=== PATIENT | female | born 1945 | race Caucasian/White ===

== ENCOUNTER → 2017-02-25 | Outpatient (CLI) | payer OTHER ==
[~2017-02-25] MED LIST: AFRIN,GENASAL D15 ML BOTH NARES; ALENDRONATE SOD70 MG PO; AMARYL4 MG PO; AMLODIPINE BESY10 MG PO; AMLODIPINE BESYL5 MG PO; AMLODIPINE-BEN1 EAC4 PO; CALCIO DEL MAR500 MG PO; CLONIDINE HCL0.1 MG PO; CYCLOBENZAPRINE10 MG PO; DOCUSATE SODIU100 MG PO; ERGOCALCIF50000 UNIT PO; FLEXERIL10 MG PO; FOSAMAX70 MG PO; GLIMEPIRIDE2 MG PO; GLIMEPIRIDE4 MG PO; GLUCOSAMINE CH1 EAC7 PO; HUMALOG100 UNIT/2 SC; LABETALOL HCL200 MG PO; LANTUS 3 M100 UNITS1 SC; LANTUS100 UNIT/1 SQ; LEVAQUIN750 MG PO; LISINOPRIL20 MG PO; METFORMIN HCL1000 MG PO; NORCO 5/3251 TABLET PO; NORVASC2.5 MG PO; NORVASC5 MG PO; NOVOLIN,HU100 UNITS/ SC; NOVOLOG MI100 UNIT/4 SC; OXYCODONE-ACET1 EACH PO; PAROXETINE HCL20 MG PO; PAROXETINE HCL30 MG PO; PAXIL20 MG PO; PAXIL30 MG PO; PERCOCET 10/1 TABLET PO; PERCOCET 5/31 TABLET PO; PRAVACHOL40 MG PO; PRAVACHOL80 MG PO; PRAVASTATIN SOD40 MG PO; PREDNISONE20 MG PO; TOUJEO SOL300 UNIT/1 SC; VITAMIN D250000 UNIT PO
== END | disposition home or self-care (01) ==
LOC: CDC 13:58
DX: R94.31 Abnormal electrocardiogram [ECG] [EKG] (principal)
CPT/HCPCS: 93000

== ENCOUNTER 2017-03-15 06:49 | Day surgery (SDC) | payer OTHER ==
[~2017-03-15] VITALS: Ht 167.6 cm; Wt 63.5 kg
[~2017-03-15 06:49] MED LIST changes: +AMLODIPINE-BEN1 EACH PO; +NOVOLOG MI100 UNIT/3 SC
[2017-03-15 07:39] LABS: HEMATOCRIT 33.6 % (36.0-46.0); MCH 29.1 PG (29.0-34.0); MCV 88.2 FL (83-99); MEAN PLAT.VOLUME 12.2 uM^3 (9.5-12.4); PLATELET COUNT 274 K/uL (156-360); RBC DIS.WIDTH-CV 13.8 % (11.8-14.6); RBC DIS.WIDTH-SD 44.5 % (39-53); RED BLOOD COUNT 3.81 M/uL (3.80-5.20); WHITE BLOOD COUNT 7.6 K/uL (4.1-10.2)
[2017-03-15 07:45] VITALS: BP 180/86
[2017-03-15 08:12] LABS: ANION GAP 8 MEQ/L (2-14); CHLORIDE 109 MEQ/L (99-109); GFR ESTIMATE (CALCULATED) 16 mL/min/; GLUCOSE 109 mg/dL (70-99); POTASSIUM 3.4 MEQ/L (3.7-5.4); SAMPLE HEMOLYSIS CHECK 0; SAMPLE ICTERIC CHECK 0; SAMPLE LIPEMIA CHECK 0; SODIUM 140 MEQ/L (136-147); UREA NITROGEN (BUN) 38 mg/dL (9-23)
[2017-03-15 11:42] LABS: POINT-OF-CARE METER ID UU13113675
[2017-03-15 12:17] VITALS: BP 166/73
[2017-03-15 13:26] VITALS: BP 140/70
[2017-03-15 13:59] LABS: POINT-OF-CARE METER ID UU13113694
== END 2017-03-15 13:35 | disposition home or self-care (01) ==
LOC: SDC 06:49
PROVIDERS: Surgery
DX: I12.0 Hypertensive chronic kidney disease with stage 5 chronic kidney disease or end stage renal disease (principal); E11.22 Type 2 diabetes mellitus with diabetic chronic kidney disease; N18.6 End stage renal disease; Z99.2 Dependence on renal dialysis; Z79.4 Long term (current) use of insulin; Z88.6 Allergy status to analgesic agent
CPT/HCPCS: 80048; 82948; 85027; J0131; J0690; J1644; J2250; J2405; J2720; J3010

== ENCOUNTER 2017-04-12 07:26 | Inpatient (IN) | payer OTHER ==
[~2017-04-12] VITALS: Ht 167.6 cm; Wt 64.8 kg
[2017-04-12 08:04] LABS: EOSINOPHIL (%) 3.4 % (0-5); EOSINOPHIL COUNT 0.3 K/uL (0-0.3); HEMATOCRIT 34.2 % (36.0-46.0); IMMATURE GRANULOCYTE (%) 0.3 % (0.0-0.7); INSTRUMENT ABS NEUTROPHIL CT 5.1 K/uL; LYMPHOCYTE COUNT 1.2 K/uL (1.0-2.8); MCH 28.3 PG (29.0-34.0); MCHC 31.6 G/DL (30.0-36.0); MCV 89.8 FL (83-99); MEAN PLAT.VOLUME 12.2 uM^3 (9.5-12.4); MONOCYTE (%) 9.9 % (3-12); MONOCYTE COUNT 0.7 K/uL (0-0.8); NEUTROPHIL (%) 69.3 % (45-76); NEUTROPHIL COUNT 5.1 K/uL (1.8-6.4); PLATELET COUNT 251 K/uL (156-360); RBC DIS.WIDTH-CV 14.2 % (11.8-14.6); RBC DIS.WIDTH-SD 46.4 % (39-53); RED BLOOD COUNT 3.81 M/uL (3.80-5.20); WHITE BLOOD COUNT 7.3 K/uL (4.1-10.2)
[2017-04-12 08:09] LABS: INTER. NORMALIZED RATIO 1.1; PROTHROMBIN TIME 12.1 SEC (10.2-12.9)
[2017-04-12 08:12] LABS: PTT 31.4 SEC (25-37)
[2017-04-12 08:28] LABS: ANION GAP 11 MEQ/L (2-14); CHLORIDE 111 MEQ/L (99-109); POTASSIUM 4.3 MEQ/L (3.7-5.4); SAMPLE HEMOLYSIS CHECK 0; SAMPLE ICTERIC CHECK 0; SAMPLE LIPEMIA CHECK 0; SODIUM 141 MEQ/L (136-147)
[2017-04-12 08:33] LABS: GFR ESTIMATE (CALCULATED) 18 mL/min/; GLUCOSE 331 mg/dL (70-99); UREA NITROGEN (BUN) 36 mg/dL (9-23)
[2017-04-12 08:37] LABS: TROP-I INTERPRETATION NEGATIVE; TROPONIN-I 0.04 ng/mL (0.0-0.30)
[2017-04-12] MEDS ORDERED: NOVOLIN,HU100 UNITS/ SC ×2 (09:36)
[2017-04-12 12:34] VITALS: BP 147/95
[2017-04-12] MEDS ORDERED: CALCITRIOL0.25 MCG PO (12:52)
[2017-04-12 13:19] LABS: POINT-OF-CARE METER ID UU14174216
[2017-04-12] MEDS ORDERED: DITROPAN5 MG PO ×2 (14:28→14:29)
[2017-04-12 14:33] VITALS: BP 197/94
[2017-04-12 15:01] LABS: TROP-I INTERPRETATION NEGATIVE; TROPONIN-I 0.04 ng/mL (0.0-0.30)
[2017-04-12 15:25] VITALS: BP 152/68
[2017-04-12 16:24] LABS: POINT-OF-CARE METER ID UU13113781
[2017-04-12 17:03] VITALS: BP 183/88
[2017-04-12] MEDS ORDERED: TELMISARTAN-AM1 EAC1 PO (17:31)
[2017-04-12 18:14] VITALS: BP 129/60
[2017-04-12 19:47] VITALS: BP 165/71
[2017-04-12 20:47] LABS: TROP-I INTERPRETATION NEGATIVE
[2017-04-12 22:49] LABS: POINT-OF-CARE METER ID UU14174216
[2017-04-13 00:15] VITALS: BP 154/76
[2017-04-13 04:01] VITALS: BP 138/67
[2017-04-13 06:34] LABS: ANION GAP 9 MEQ/L (2-14); CHLORIDE 108 MEQ/L (99-109); SAMPLE HEMOLYSIS CHECK 0; SAMPLE ICTERIC CHECK 0; SAMPLE LIPEMIA CHECK 0; SODIUM 142 MEQ/L (136-147); UREA NITROGEN (BUN) 40 mg/dL (9-23)
[2017-04-13 06:36] LABS: GFR ESTIMATE (CALCULATED) 12 mL/min/; GLUCOSE 43 mg/dL (70-99); POTASSIUM 3.4 MEQ/L (3.7-5.4)
[2017-04-13 07:30] VITALS: BP 129/60
[2017-04-13 12:00] VITALS: BP 145/69
[2017-04-13 16:01] VITALS: BP 163/72
[2017-04-13 20:33] VITALS: BP 136/62
[2017-04-13 21:54] LABS: POINT-OF-CARE METER ID UU13113781
[2017-04-14] VITALS (7 sets, daily range): BP systolic 125–155; BP diastolic 64–81
[2017-04-14 02:50] LABS: POINT-OF-CARE METER ID UU14174216
[2017-04-14 05:09] LABS: BASOPHIL COUNT 0.1 K/uL (0-0.1); EOSINOPHIL (%) 1.4 % (0-5); EOSINOPHIL COUNT 0.1 K/uL (0-0.3); HEMATOCRIT 32.8 % (36.0-46.0); IMMATURE GRANULOCYTE (%) 0.5 % (0.0-0.7); IMMATURE GRANULOCYTE COUNT 0.1 K/uL; LYMPHOCYTE COUNT 1.1 K/uL (1.0-2.8); MCH 28.7 PG (29.0-34.0); MCV 89.6 FL (83-99); MEAN PLAT.VOLUME 12.2 uM^3 (9.5-12.4); MONOCYTE (%) 8.9 % (3-12); MONOCYTE COUNT 0.8 K/uL (0-0.8); NEUTROPHIL (%) 76.7 % (45-76); PLATELET COUNT 250 K/uL (156-360); RBC DIS.WIDTH-CV 14.3 % (11.8-14.6); RBC DIS.WIDTH-SD 47.2 % (39-53); RED BLOOD COUNT 3.66 M/uL (3.80-5.20); WHITE BLOOD COUNT 9.1 K/uL (4.1-10.2)
[2017-04-14 05:48] LABS: ANION GAP 13 MEQ/L (2-14); CHLORIDE 105 MEQ/L (99-109); GFR ESTIMATE (CALCULATED) 12 mL/min/; GLUCOSE 55 mg/dL (70-99); SAMPLE HEMOLYSIS CHECK 0; SAMPLE ICTERIC CHECK 0; SAMPLE LIPEMIA CHECK 0; SODIUM 139 MEQ/L (136-147); UREA NITROGEN (BUN) 45 mg/dL (9-23)
[2017-04-14 06:00] LABS: POTASSIUM 4.8 MEQ/L (3.7-5.4)
[2017-04-14 06:39] LABS: POINT-OF-CARE METER ID UU14174216
[2017-04-14 08:10] LABS: POINT-OF-CARE METER ID UU14174216; POINT-OF-CARE USER ID NUTSLF44
[2017-04-14 12:55] LABS: POINT-OF-CARE USER ID NUTSLF44
[2017-04-14 16:27] LABS: POINT-OF-CARE METER ID UU13113781; POINT-OF-CARE USER ID NUTSLF44
[2017-04-14 21:37] LABS: POINT-OF-CARE METER ID UU13113781
[2017-04-15 03:37] VITALS: BP 159/74
[2017-04-15 06:48] LABS: BASOPHIL COUNT 0.1 K/uL (0-0.1); EOSINOPHIL (%) 3.2 % (0-5); EOSINOPHIL COUNT 0.3 K/uL (0-0.3); HEMATOCRIT 31.8 % (36.0-46.0); IMMATURE GRANULOCYTE (%) 0.3 % (0.0-0.7); INSTRUMENT ABS NEUTROPHIL CT 4.9 K/uL; LYMPHOCYTE COUNT 1.7 K/uL (1.0-2.8); MCH 29.4 PG (29.0-34.0); MCHC 32.4 G/DL (30.0-36.0); MCV 90.9 FL (83-99); MEAN PLAT.VOLUME 12.1 uM^3 (9.5-12.4); MONOCYTE (%) 10.8 % (3-12); MONOCYTE COUNT 0.8 K/uL (0-0.8); NEUTROPHIL (%) 62.9 % (45-76); NEUTROPHIL COUNT 4.9 K/uL (1.8-6.4); PLATELET COUNT 227 K/uL (156-360); RBC DIS.WIDTH-CV 14.5 % (11.8-14.6); RBC DIS.WIDTH-SD 47.8 % (39-53); WHITE BLOOD COUNT 7.7 K/uL (4.1-10.2)
[2017-04-15 07:12] LABS: ANION GAP 10 MEQ/L (2-14); CHLORIDE 107 MEQ/L (99-109); GFR ESTIMATE (CALCULATED) 10 mL/min/; GLUCOSE 63 mg/dL (70-99); POTASSIUM 4.8 MEQ/L (3.7-5.4); SAMPLE HEMOLYSIS CHECK 0; SAMPLE ICTERIC CHECK 0; SAMPLE LIPEMIA CHECK 0; SODIUM 140 MEQ/L (136-147); UREA NITROGEN (BUN) 53 mg/dL (9-23)
[2017-04-15 07:38] LABS: POINT-OF-CARE METER ID UU14188625
[2017-04-15 08:22] LABS: POINT-OF-CARE METER ID UU13113717
[2017-04-15 08:25] VITALS: BP 155/71
[2017-04-15 11:33] VITALS: BP 140/74
[2017-04-15 16:17] VITALS: BP 139/63
[2017-04-15 19:52] VITALS: BP 132/63
[2017-04-15 21:19] LABS: POINT-OF-CARE METER ID UU14188625
[2017-04-16 00:02] VITALS: BP 136/63
[2017-04-16 03:36] VITALS: BP 116/55
[2017-04-16 07:05] LABS: ANION GAP 11 MEQ/L (2-14); CHLORIDE 106 MEQ/L (99-109); GFR ESTIMATE (CALCULATED) 11 mL/min/; GLUCOSE 53 mg/dL (70-99); POTASSIUM 4.7 MEQ/L (3.7-5.4); SAMPLE HEMOLYSIS CHECK 0; SAMPLE ICTERIC CHECK 0; SAMPLE LIPEMIA CHECK 0; SODIUM 139 MEQ/L (136-147); UREA NITROGEN (BUN) 55 mg/dL (9-23)
[2017-04-16 08:00] VITALS: BP 115/59; BP 115/61
[2017-04-16 10:14] LABS: POINT-OF-CARE METER ID UU14188625
[2017-04-16 11:52] VITALS: BP 131/73
[2017-04-16 12:09] LABS: POINT-OF-CARE METER ID UU13113717
[2017-04-16] MEDS ORDERED: NIFEDIPINE ER30 MG PO (12:27)
[2017-04-16] MEDS ORDERED: LABETALOL HCL200 MG PO (12:27)
[2017-04-16] MEDS ORDERED: FUROSEMIDE20 MG PO (12:28)
[2017-04-16] MEDS ORDERED: RENVELA800 MG PO (12:28)
== END 2017-04-16 14:02 | disposition home health service (06) | DRG 291 ==
LOC: EME 07:26 → 4EAST 09:28 → EDOF 09:28 → ENRESERV 09:30 → EDOF 11:05 → ENRESERV 11:24 → 4EAST 12:19 → 5SOUTH 04-14 16:23 → ENRESERV 04-14 16:32 → 5SOUTH 04-14 22:08
PROVIDERS: Emergency Medicine; Internal Medicine; Internal Medicine Nephrology; Nurse Practitioner Adult Health
DX: I13.2 Hypertensive heart and chronic kidney disease with heart failure and with stage 5 chronic kidney disease, or end stage renal disease (principal); I50.31 Acute diastolic (congestive) heart failure; N17.9 Acute kidney failure, unspecified; N18.5 Chronic kidney disease, stage 5; E11.22 Type 2 diabetes mellitus with diabetic chronic kidney disease; I27.2 Other secondary pulmonary hypertension; I31.3 Pericardial effusion (noninflammatory); I35.0 Nonrheumatic aortic (valve) stenosis; I16.1 Hypertensive emergency; E78.00 Pure hypercholesterolemia, unspecified; E87.6 Hypokalemia; M81.0 Age-related osteoporosis without current pathological fracture; F32.9 Major depressive disorder, single episode, unspecified; E55.9 Vitamin D deficiency, unspecified; F41.9 Anxiety disorder, unspecified; R26.81 Unsteadiness on feet; Z79.4 Long term (current) use of insulin; Z87.81 Personal history of (healed) traumatic fracture; Z83.3 Family history of diabetes mellitus
CPT/HCPCS: 71010; 80048; 82948; 83735; 83880; 84100; 84484; 85025; 85610; 85730; 93005; 93306; 94799; 99281; 99285; J0360; J1644; J1815; J1940; J2270

== ENCOUNTER 2017-05-11 11:55 | Emergency (ER) | payer OTHER ==
[~2017-05-11] VITALS: Ht 167.6 cm; Wt 61.6 kg
[~2017-05-11 11:55] MED LIST changes: +CALCITRIOL0.25 MCG PO; +DITROPAN5 MG PO; +FUROSEMIDE20 MG PO; +NIFEDIPINE ER30 MG PO; +RENVELA800 MG PO; +TELMISARTAN-AM1 EAC1 PO
[2017-05-11 12:50] LABS: HEMATOCRIT 32.7 % (36.0-46.0); MCH 28.6 PG (29.0-34.0); MCHC 32.4 G/DL (30.0-36.0); MCV 88.4 FL (83-99); PLATELET COUNT 282 K/uL (156-360); RBC DIS.WIDTH-CV 12.9 % (11.8-14.6); RBC DIS.WIDTH-SD 41.5 % (39-53); WHITE BLOOD COUNT 10.3 K/uL (4.1-10.2)
[2017-05-11 13:13] LABS: CHLORIDE 107 mEq/L (99-109); TROP-I INTERPRETATION NEGATIVE; TROPONIN-I 0.07 ng/mL (0.0-0.30)
[2017-05-11 13:14] LABS: POTASSIUM 4.1 mEq/L (3.7-5.4); SODIUM 138 mEq/L (136-147)
[2017-05-11 13:15] LABS: GLUCOSE 212 mg/dL (70-99)
[2017-05-11 13:17] LABS: ANION GAP 14 MEQ/L (2-14)
[2017-05-11 13:19] LABS: GFR ESTIMATE (CALCULATED) 12 mL/min/
[2017-05-11 13:20] LABS: UREA NITROGEN (BUN) 47 mg/dL (9-23)
[2017-05-11] MEDS ORDERED: HYDROCODON-ACE1 EAC7 PO (14:55)
[2017-05-11 15:07] VITALS: BP 152/60
== END 2017-05-11 15:21 | disposition home or self-care (01) ==
LOC: EME 11:55
PROVIDERS: Emergency Medicine
PROC: 2W3LX1Z Immobilization of Right Lower Extremity using Splint (ICD-10-PCS; principal; 2017-05-11)
DX: R55 Syncope and collapse (principal); S82.441A Displaced spiral fracture of shaft of right fibula, initial encounter for closed fracture; W19.XXXA Unspecified fall, initial encounter; E11.9 Type 2 diabetes mellitus without complications; Z79.4 Long term (current) use of insulin; E78.5 Hyperlipidemia, unspecified; F32.9 Major depressive disorder, single episode, unspecified; F41.9 Anxiety disorder, unspecified
CPT/HCPCS: 70450; 71010; 73564; 73610; 73630; 80048; 84484; 85027; 93005; 99281; 99285; J2270

== ENCOUNTER 2017-05-12 13:13 | Day surgery (SDC) | payer OTHER ==
[~2017-05-12 13:13] MED LIST changes: +HYDROCODON-ACE1 EAC7 PO
[2017-05-12 14:32] LABS: POINT-OF-CARE METER ID UU13113696; POINT-OF-CARE USER ID HMLCJM07
== END 2017-05-12 16:07 | disposition home or self-care (01) ==
LOC: CATH 13:13
PROVIDERS: Surgery
PROC: 057Y3ZZ Dilation of Upper Vein, Percutaneous Approach (ICD-10-PCS; principal; 2017-05-12)
DX: T82.858A Stenosis of other vascular prosthetic devices, implants and grafts, initial encounter (principal); I12.0 Hypertensive chronic kidney disease with stage 5 chronic kidney disease or end stage renal disease; E11.22 Type 2 diabetes mellitus with diabetic chronic kidney disease; N18.6 End stage renal disease; Z99.2 Dependence on renal dialysis; E78.00 Pure hypercholesterolemia, unspecified; Z79.82 Long term (current) use of aspirin; Z79.4 Long term (current) use of insulin
CPT/HCPCS: 82948; C1725; C1769; C1894; J1644; J2250; J3010

== ENCOUNTER → 2017-05-13 | Outpatient (CLI) | payer OTHER ==
[~2017-05-13] MED LIST changes: +NORMODYNE,TRAN300 MG PO
== END | disposition home or self-care (01) ==
LOC: CDC 15:19
DX: I45.4 Nonspecific intraventricular block (principal); R94.31 Abnormal electrocardiogram [ECG] [EKG]; S82.851A Displaced trimalleolar fracture of right lower leg, initial encounter for closed fracture; E55.9 Vitamin D deficiency, unspecified
CPT/HCPCS: 93000

== ENCOUNTER 2017-05-16 07:32 | Inpatient (IN) | payer OTHER ==
[~2017-05-16] VITALS: Ht 167.6 cm; Wt 62.2 kg
[2017-05-16] VITALS (9 sets, daily range): BP systolic 77–123; BP diastolic 45–73
[~2017-05-16 07:32] MED LIST changes: -NORMODYNE,TRAN300 MG PO
[2017-05-16 08:03] LABS: BASOPHIL COUNT 0.1 K/uL (0-0.1); EOSINOPHIL (%) 1.3 % (0-5); EOSINOPHIL COUNT 0.2 K/uL (0-0.3); HEMATOCRIT 26.7 % (36.0-46.0); IMMATURE GRANULOCYTE (%) 0.7 % (0.0-0.7); IMMATURE GRANULOCYTE COUNT 0.1 K/uL; INSTRUMENT ABS NEUTROPHIL CT 8.9 K/uL; LYMPHOCYTE COUNT 1.5 K/uL (1.0-2.8); MCH 28.7 PG (29.0-34.0); MEAN PLAT.VOLUME 12.3 uM^3 (9.5-12.4); MONOCYTE (%) 11.3 % (3-12); MONOCYTE COUNT 1.4 K/uL (0-0.8); NEUTROPHIL (%) 73.8 % (45-76); NEUTROPHIL COUNT 8.9 K/uL (1.8-6.4); NRBC (%) 0.2 /100 WBC (0-0); PLATELET COUNT 259 K/uL (156-360); RBC DIS.WIDTH-CV 13.7 % (11.8-14.6); RBC DIS.WIDTH-SD 42.7 % (39-53); RED BLOOD COUNT 3.07 M/uL (3.80-5.20)
[2017-05-16 08:09] LABS: INTER. NORMALIZED RATIO 1.1; PROTHROMBIN TIME 12.8 SEC (10.2-12.9)
[2017-05-16 08:11] LABS: PTT 23.8 SEC (25-37)
[2017-05-16 08:30] LABS: ANION GAP 17 MEQ/L (2-14); CHLORIDE 101 MEQ/L (99-109); POTASSIUM 4.3 MEQ/L (3.7-5.4); SAMPLE HEMOLYSIS CHECK 0; SAMPLE ICTERIC CHECK 0; SAMPLE LIPEMIA CHECK 0; SODIUM 133 MEQ/L (136-147)
[2017-05-16 08:35] LABS: TROP-I INTERPRETATION POSITIVE; TROPONIN-I 3.87 ng/mL (0.0-0.30)
[2017-05-16 08:36] LABS: GFR ESTIMATE (CALCULATED) 7 mL/min/
[2017-05-16 08:43] LABS: BASE EXCESS -8.1 mEq/L (-3 to +3); BICARBONATE 15.7 mEq/L (22-26); CARBOXY HGB 1.4 % (0-5); METHEMOGLOBIN 0.8 % (0-1.5); PO2 65 mm Hg (80-100); pH 7.39 (7.35-7.45)
[2017-05-16 08:45] LABS: COMMENTS - BLOOD GASES A+C+; DEVICE NRB; FI02 100 %; PCO2 26 mm Hg (35-45); SITE RR; TOTAL RESP RATE 20 resp/min
[2017-05-16 08:48] LABS: GLUCOSE 140 mg/dL (70-99); UREA NITROGEN (BUN) 97 mg/dL (9-23)
[2017-05-16] MEDS ORDERED: NORMODYNE,TRAN300 MG PO (08:59)
[2017-05-16] MEDS ORDERED: ERGOCALCIF50000 UNIT PO (10:54)
[2017-05-16 12:26] LABS: METH RESISTANT S AUREUS PCR NEGATIVE (NEGATIVE)
[2017-05-16 12:28] LABS: PROBE CHECK PASS; SPECIMEN PROCESSING CONTROL PASS
[2017-05-16 14:07] LABS: ANTI-HEPATITIS B CORE (TOTAL) Nonreactive; HBCT INDEX 0.06
[2017-05-16 14:08] LABS: AHBS INDEX 0.26; HEPATITIS B SURFACE ANTIBODY Nonreactive; HPCA INDEX 0.16
[2017-05-16 14:16] LABS: POINT-OF-CARE METER ID UU13113748
[2017-05-16 16:25] LABS: BICARBONATE 17.8 mEq/L (22-26); CARBOXY HGB 1.1 % (0-5); METHEMOGLOBIN 1.3 % (0-1.5); PCO2 25 mm Hg (35-45); pH 7.46 (7.35-7.45)
[2017-05-16 16:26] LABS: COMMENTS - BLOOD GASES NA C+; DEVICE VENT; FI02 100 %; MECHANICAL RATE 16 resp/min; MODE AC; PEEP 8 CM/H20; PO2 49 mm Hg (80-100); SITE RB; TIDAL VOLUME 400 ML; TOTAL RESP RATE 16 resp/min
[2017-05-16 16:29] LABS: TROP-I INTERPRETATION POSITIVE; TROPONIN-I 2.75 ng/mL (0.0-0.30)
== END 2017-05-16 18:53 | disposition short-term general hospital (02) | DRG 280 ==
LOC: EME → EDBD 07:32 → EME 07:32 → EDOF 10:41 → ENRESERV 10:42 → 4WEST 11:04
PROVIDERS: Emergency Medicine; Internal Medicine Nephrology; Internal Medicine Pulmonary Disease
DX: I13.2 Hypertensive heart and chronic kidney disease with heart failure and with stage 5 chronic kidney disease, or end stage renal disease (principal); I50.9 Heart failure, unspecified; R57.0 Cardiogenic shock; J96.01 Acute respiratory failure with hypoxia; N17.9 Acute kidney failure, unspecified; I21.4 Non-ST elevation (NSTEMI) myocardial infarction; I35.0 Nonrheumatic aortic (valve) stenosis; E11.22 Type 2 diabetes mellitus with diabetic chronic kidney disease; N18.6 End stage renal disease; D63.1 Anemia in chronic kidney disease; E11.42 Type 2 diabetes mellitus with diabetic polyneuropathy; E78.00 Pure hypercholesterolemia, unspecified; E78.5 Hyperlipidemia, unspecified; I27.22 Pulmonary hypertension due to left heart disease; M81.0 Age-related osteoporosis without current pathological fracture; E55.9 Vitamin D deficiency, unspecified; F32.9 Major depressive disorder, single episode, unspecified; F41.9 Anxiety disorder, unspecified; M19.90 Unspecified osteoarthritis, unspecified site; Z79.4 Long term (current) use of insulin; Z88.6 Allergy status to analgesic agent; Z88.1 Allergy status to other antibiotic agents
CPT/HCPCS: 36415; 36600; 71010; 80048; 80053; 82803; 82948; 83880; 84484; 85025; 85379; 85610; 85730; 86704; 86706; 86803; 87340; 87641; 93000; 93005; 94002; 94760; 99281; 99285; C1751; C1752; J1644; J1940; J2250; J2370; J2704; J7050; P9047